=== PATIENT | male | born 1995 | race Two or more races ===

== ENCOUNTER 2024-08-10 13:05 | Emergency (ER) | payer MEDICAID, SELFPAY ==
[2024-08-10 13:17] VITALS: BP 135/56; PULSE 114; RESP 20; TEMP 36.9; O2SAT 96; BMI 26.4
--- NOTE | 2024-08-10 13:24 | XR_ITS ---
Examination: PA lateral chest 2 views TECHNIQUE: Upright PA lateral chest 2 views Exam date and time: August 10, 2024 1331 hours INDICATIONS: Coughing chest pain today FINDINGS: Normal heart size. The lungs are clear. The osseous structures are intact IMPRESSION: No active disease
--- NOTE | 2024-08-10 13:26 | PD.EDURI ---
Upper Respiratory Inf. RME/HPI General Chief Complaint: Flu Like Symptoms Stated Complaint: Cough X 1 week, penis infection Time Seen by Provider: 08/10/24 13:08 Source: patient Arrival date/time: 08/10/24 13:05 28-year-old male with no known medical history presents to the emergency room with a chief complaint of cough, congestion, intermittent fevers x 1 week. Patient states he is also has an infection to his penis. Mode of arrival: ambulatory Limitations: no limitations Related Data Previous Rx's ?Medication ?Instructions ?Recorded valacyclovir 1 gram tablet 1,000 mg PO BID 10 days #20 tabs 08/10/24 Allergies Allergy/AdvReac Type Severity Reaction Status Date / Time NKA* Allergy Uncoded 02/09/17 10:43 Review of Systems Review of Systems Systems Reviewed: All systems reviewed, normal except as documented Constitutional Constitutional: Reports system reviewed and no additional complaints, except as documented, Denies fatigue, Denies fever(s), Denies headache(s) and Denies weakness Eyes Eyes: Reports system reviewed and no additional complaints, except as documented, Denies blurry vision and Denies change in vision ENT Ears, Nose, Mouth, and Throat: Reports system reviewed and no additional complaints, except as documented, Denies otalgia, Denies headache(s), Denies nasal congestion, Denies throat swelling and Denies vertigo Cardiovascular Cardiovascular: Reports system reviewed and no additional complaints, except as documented, Denies chest pain, Denies dyspnea and Denies dyspnea on exertion Respiratory Respiratory: Reports chest congestion, Reports cough, Denies dyspnea, Denies dyspnea on exertion and Denies wheezing Gastrointestinal Gastrointestinal: Reports system reviewed and no additional complaints, except as documented, Denies abdominal pain, Denies cramping, Denies nausea and Denies vomiting Genitourinary Genitourinary: Reports system reviewed and no additional complaints, except as documented, Denies dysuria, Reports genital lesions, Reports genital pain and Denies hematuria Musculoskeletal Musculoskeletal: Reports system reviewed and no additional complaints, except as documented and Denies back pain Integumentary/Breasts Skin/Breast: Reports system reviewed and no additional complaints, except as documented and Denies wounds Neurologic Neurologic: Reports system reviewed and no additional complaints, except as documented, Denies confusion, Denies headache(s), Denies lack of coordination, Denies vertigo and Denies weakness Psychiatric Psychiatric: Reports system reviewed and no additional complaints, except as documented, Denies anxiety, Denies confusion, Denies depression, Denies paranoia, Denies suicidal ideation and Denies tactile hallucinations Endocrine Endocrine: Reports system reviewed and no additional complaints, except as documented and Denies fatigue Hematologic/Lymphatic Hematologic/Lymphatic: Reports system reviewed and no additional complaints, except as documented and Denies lymphadenopathy Allergic/Immunologic Allergic/Immunologic: Reports system reviewed and no additional complaints, except as documented, Denies throat swelling, Denies urticaria and Denies wheezing Past Medical History Social History SMOKING STATUS: Current every day smoker ED Exam General Limitations: Present no limitations General appearance: Present alert and in no apparent distress Head Head exam: Present atraumatic Eye Eye exam: Present normal appearance, PERRL and EOMI ENT ENT exam: Present normal exam, normal oropharynx and mucous membranes moist Neck Neck exam: Present normal inspection, full ROM and trachea midline Chest Chest inspection: Present normal inspection and symmetric chest wall rise Respiratory Respiratory exam: Present normal lung sounds bilaterally Cardiovascular Cardiovascular exam: Present regular rate, normal rhythm and normal heart sounds Abdominal Exam Abdominal exam: Present soft and normal bowel sounds Extremities Exam Extremities exam: Present normal inspection and full ROM Back Exam Back exam: Present normal inspection and full ROM Neurological Exam Neurological exam: Present alert, oriented X3 and CN II-XII intact Psychiatric Psychiatric exam: Present normal affect and normal mood Skin Skin exam: Present warm, dry, intact and normal color Course Quality Measures none Orders Category Date Time Status Bedside COVID-19 Antigen Test NOW Care 08/10/24 13:24 Active Bedside Influenza A&B Antigen Test NOW Care 08/10/24 13:24 Completed XR chest 2V Stat Exams 08/10/24 13:24 Completed Vital Signs Vital signs: Vital Signs Temperature 98.5 F 08/10/24 13:17 Pulse Rate 114 H 08/10/24 13:17 Respiratory Rate 20 08/10/24 13:17 Blood Pressure 135/56 H 08/10/24 13:17 Pulse Oximetry (%) 96 08/10/24 13:17 Oxygen Delivery Method Room Air 08/10/24 13:17 O2 saturation 96% within normal limits Upper Respiratory Infection MDM Narrative MDM Narrative:: 28-year-old male with no known medical history presents to the emergency room with a chief complaint of cough, congestion, intermittent fevers x 1 week. Patient states he is also has an infection to his penis. The patient is hemodynamically stable and in no apparent distress. Physical examination shows clear bilateral lung sounds with no wheezing or any abnormal breath sounds. COVID-19 influenza and chest x-ray were negative for any acute findings. Physical examination shows a rash consistent with genital herpes to the patient's penis. There is multiple pustules. Patient states he is not taking the antiviral medication for the last 9 days. Patient states the rash has gotten better but has not gone away yet. Another dose of medication was sent to the patient's pharmacy patient was discharged and educated to follow-up with his primary care provider and return to the emergency room for any evidence of worsening signs or symptoms Patient data External records reviewed:: [facility] previous records Clinical information provided by:: patient Social determinants that could affect healthcare access:: none Patient has the following chronic illnesses:: No chronic illness How is presenting disease/condition affected by chronic disease/condition?: no chronic disease Evaluation data The following diagnostics were reviewed and interpreted by me:: lab results and radiology exam(s) Lab and/or radiology exams considered but not ordered:: Labs and radiology exams considered and ordered Interpretation Summary: N/A Medications / Prescriptions Medications or Prescriptions considered but not ordered:: Medication given Medication administrations:: Rx given Consultations Consultation(s) initiated? (list below): No Diagnosis Upper Respiratory Differential Diagnosis: upper respiratory infection, sinusitis, viral infection, influenza and other (Genital herpes) Most likely diagnosis given after review of the tests above:: Genital herpes Admission Indicated Admission indicated?: not indicated Admission Request Was there a request for admission?: No Disposition Plan Disposition Plan: Discharge Discharge Attestation Discharge Attestation: The patient and all family members were given an opportunity to ask questions and understood the discharge instructions. Discharge instructions specifically effects, indications for sooner follow up or return to the emergency department, and the expected course of current diagnosis. Patient condition: Stable Discharge Plan Plan Patient Disposition: HOME (Self Care) Disposition Comment: Stable Prescriptions/Referrals Prescriptions/Med Rec: New valacyclovir 1 gram tablet 1,000 mg PO BID 10 Days Qty: 20 0RF Referrals: No Primary/Family,Physician [Primary Care Provider] - In 1 week Problem List Clinical Impression: Recurrent genital herpes simplex, Upper respiratory infection, viral Patient/Caregiver Discharge Instructions Education Materials: Herpes: Treatment with Medication, ED Herpes Genitalis, Hsv: Type Ii, ED URI, Viral, No Abx (Adult) Additional Instructions: Please follow-up with your primary care provider in the next 24 to 48 hours. Your chest x-ray, COVID-19 and influenza test were all negative. I looked up the recommended treatment for your genital herpes and another treatment of 10 days is recommended if healing is incomplete after 10 days of therapy. Antiviral medication was sent to your pharmacy please pick it up and take it as indicated For any evidence of worsening signs or symptoms please return to the emergency room immediately Print Language: Sami Stand Alone Forms: Rhonda Award Info., Patient Portal Info Letter PA/[employer] Supervising Physician PA/[employer] Supervising Physician: Dr. Trejo
== END 2024-08-10 16:19 | disposition home or self-care (01) ==
PROVIDERS: Emergency Provider Emergency Medicine
DX: A60.02 Herpesviral infection of other male genital organs (principal); J06.9 Acute upper respiratory infection, unspecified
CPT/HCPCS: 71046; 87400; 87811; 99283

== ENCOUNTER 2025-01-09 21:45 | Emergency (ER) | payer MEDICAID, SELFPAY ==
[2025-01-09 21:45] VITALS: BP 120/74; PULSE 85; RESP 20; TEMP 37; O2SAT 99
[2025-01-09 21:47] VITALS: BMI 27.7
--- NOTE | 2025-01-09 22:19 | XR_ITS ---
Examination: CT abdomen and pelvis without contrast. Coronal 3-D reconstructions. Sagittal 2-D reconstructions. Date and time of exam:January 09, 2025 1054 hours INDICATIONS: Left testicular swelling and pain beginning one hour ago CTDI: vol (mGy): 8.15 DLP: (mGycm): 496 Technique: Axial images of the abdomen have been obtained, 3 mm slice thickness Intravenous contrast material has not been administered. Low dose protocols were performed. One or more of the following dose reduction techniques were used; automated exposure control, adjustment of the mA and/or KV according to patient size, use of iterative reconstruction technique. Findings: No focal liver or splenic lesions Contracted gallbladder No pancreatic or adrenal mass Bilateral 1 to 3 mm renal calculi No hydronephrosis or ureteral calculi Normal appendix Urinary bladder is intact Left pelvic phlebolith IMPRESSION: Bilateral nonobstructing renal calculi, no hydronephrosis or ureteral calculi Normal appendix
--- NOTE | 2025-01-09 22:19 | XR_ITS ---
Examination: Testicular sonography complete TECHNIQUE: Beltran scale sonographic images testes, assessment arterial venous outflow Doppler spectral analysis color flow analysis Date and time: January 09, 2025 11:29 PM INDICATIONS: Left testicular pain and swelling beginning 2 days ago. FINDINGS: Right testis is 5.0 cm epididymis 14 mm Arterial flow to the testicle. No testicular mass Minimal hydrocele. Left testis 4.8 cm epididymis 1.1 cm Arterial flow the testicle. No testicular mass Small left varicocele Scattered right testicular microlithiasis IMPRESSION: No testicular torsion or testicular mass Mild left varicocele
--- NOTE | 2025-01-09 22:20 | PD.EDRME ---
Rapid Medical Screening Exam [facility] Arrival date/time: 01/09/25 21:45 29M with no significant PMH presents to ED with several days of L testicular/groin pain. Patient denies dysuria and penile discharge. Chief Complaint: Urogenital-Male
[2025-01-09] MEDS: NAPROXEN 250 MG TABLET 500 MG PO (22:29)
[2025-01-09 22:41] LABS: Collection Type, Urine Clean Catch; RBC,Urine 0 /hpf (0-3); WBC,Urine 0 /hpf (0-5)
[2025-01-09 22:56] LABS: Bilirubin,Urine Negative (Negative); Blood,Urine Negative (Negative); Clarity,Urine Turbid (Clear/Hazy); Color,Urine Lt-Yellow (Lt Yel-Yel); Culture Indicated,Urine Not Indicated; Glucose, Urine Negative (Negative); Ketones,Urine Negative (Negative); Leukocyte Esterase,Urine Negative (Negative); Nitrite,Urine Negative (Negative); PH,Urine 6.5 (5.0-7.0); Protein,Urine Negative (Neg - Trace); Specific Gravity,Urine 1.028 (1.001-1.035); Squamous Epithelial Cell,Urine < 1 /hpf (0-5); Urobilinogen,Urine Negative mg/dL (0.0-1.0)
[2025-01-10 00:12] VITALS: BP 114/70; PULSE 79; RESP 18; TEMP 36.9; O2SAT 99
[2025-01-10 00:46] LABS: Amphetamine/Methamp Scrn,U Positive (Negative); Barbiturate Screen,Urine Negative (Negative); Benzodiazepines Screen,Urine Negative (Negative); Benzoylecgonine Screen, Ur Negative (Negative); Fentanyl Screen,Urine Negative (Negative); Opiate Screen,Urine Negative (Negative); THC Screen,Urine Positive (Negative)
--- NOTE | 2025-01-10 02:10 | PRELIM_ITS ---
Ultrasound of the scrotum. January 09, 2025 at 2329 hours Clinical history: Left testicular pain/swelling. Comparison: No prior study is available for comparison. Technique: Real-time ultrasound was performed using Duplex scanning including arterial inflow, venous outflow, color and spectral Doppler analysis of both testes. Findings: Right Testis: Measures 5 x 3 x 3.2 cm Volume: 25.2 cm??. Echogenicity is normal with Doppler flow present An echogenic spot is seen throughout the parenchyma. Minimal hydrocele noted. Right epididymis measures 1.4 x 0.8 x 1 cm Scrotal wall thickness: 0.2 cm Left Testis:Measures 4.8 x 2.2 x 3.6 cm Volume: 19.8 cm??. Homogeneous echotexture with Doppler flow present Mild hydrocele is seen Varicocele noted lateral to the testis, measuring 0.2???0.3 cm with Valsalva Left epididymis measures 1.1 x 0.7 x 0.7 cm Scrotal wall thickness: 0.2 cm Impression: 1. No sonographic evidence of testicular torsion or epididymitis. 2. Right testicle: Echogenic spot; minimal hydrocele. 3. Left testicle: Mild hydrocele and small left-sided varicocele. Report Electronically Signed By: Tu Harden 01/10/2025 2:09:15 AM [EST]
[2025-01-10 03:17] VITALS: BP 103/67; PULSE 78; RESP 16; TEMP 36.4; O2SAT 97
--- NOTE | 2025-01-10 04:29 | EDNOTE_ITS ---
ED General RME/HPI General Chief complaint: Urogenital-Male Stated complaint: LEFT TESTICULAR SWELLING AND PAIN X1 HOUR Arrival date/time: 01/09/25 21:45 RME / HPI RME / HPI narrative: 01/09/25 21:45 29M with no significant PMH presents to ED with several days of L testicular/groin pain. Patient denies dysuria and penile discharge. Related Data Previous Rx's ?Medication ?Instructions ?Recorded doxycycline hyclate 200 mg 200 mg PO QDAY 7 days #7 ta bs 01/10/25 tablet,delayed release Allergies Allergy/AdvReac Type Severity Reaction Status Date / Time No Known Allergies Allergy Verified 01/09/25 21:46 Review of Systems Review of Systems Systems Reviewed: All systems reviewed, normal except as documented ED Exam Narrative Physical exam: Physical Exam GENERAL: NAD, AAOx3 HEENT: Moist mucosa. Eyes open, symmetrical, & clear CARDIO: Heart RRR, no obvious murmurs PULM: No noted coughing/dyspnea CTA B/L, no R/W/R GI: Abdomen soft, nondistended, no pain on palpation. BSx4 SKIN/MSK/EXT: No wounds/rashes/edema/amputations, no pain on palpation. Pedal pulses present B/L : left testicle swollen and tender to palpation compared to the right, no redness, no penile discharge. NEURO: AAOx3, no focal neuro deficits, able to move all 4 extremities Course Course Course Narrative: 2218 US of testicle shows left testicle with small hydrocele and varicocele 2233 UA no evidence of UTI 0444 Ceftriaxone 250mg IM x1 and toradol 30mg IM x1 ordered Patient can be safely discharged with doxycycline 200mg for 7 days Should any symptoms recur or worsen patient instructed to return to the ED. Quality Measures none Orders Category Date Time Status CT abdomen pelvis wo con Stat Exams 01/09/25 22:19 Completed US testicular Stat Exams 01/09/25 22:19 Taken Chlamydia/GC/TV - PCR Stat Lab 01/09/25 22:34 Received Drug Screen,Urine Stat Lab 01/09/25 22:34 Completed Urinalysis, C/S if Indicated Stat Lab 01/09/25 22:34 Completed Ketorolac Inj [Toradol Inj] Med 01/10/25 04:48 Discontinued 30 mg IM X1 ONE Naproxen [Naprosyn] Med 01/09/25 22:21 Discontinued 500 mg PO X1 ONE cefTRIAXone [Rocephin] Med 01/10/25 04:44 Discontinued 250 mg IM X1 ONE Vital Signs Vital signs: Vital Signs Temperature 98.6 F 01/09/25 21:45 Pulse Rate 85 01/09/25 21:45 Respiratory Rate 20 01/09/25 21:45 Blood Pressure 120/74 01/09/25 21:45 Pulse Oximetry (%) 99 01/09/25 21:45 Oxygen Delivery Method Room Air 01/09/25 21:45 Discharge Plan Plan Patient Disposition: HOME (Self Care) Prescriptions/Referrals Prescriptions/Med Rec: New doxycycline hyclate 200 mg tablet,delayed release (DR/EC) 200 mg PO QDAY 7 Days Qty: 7 0RF Referrals: No Primary/Family,Physician [Primary Care Provider] - In 1 week Problem List Clinical Impression: Orchitis, Epididymitis, STI (sexually transmitted infection) Patient/Caregiver Discharge Instructions Print Language: Palestinian Stand Alone Forms: Rhonda Award Info., Work/School Release, Patient Portal Info Letter MD Attestation MD Attestation I saw this patient with Dr. Bell the resident in the emergency department. I was present for the pertinent part of the history and physical. We discussed the management and care for this patient. I reviewed the note and agree. MDM Narrative MDM hospital course: 29 y/o M with no significant past medical history presented to the ED due left sided testicular pain. Patient states onset was around 2 days ago. States it came all of a sudden, with associated chills and fever. he noted that his left testicle was more swollen compared to the right one. He also endorsed that he does not have multiple sexual partners. Of note patient states he as a child had surgery on his testicles but does not recall which testicle actually had surgery. He denies any penile discharge, dysuria, changes in urinary habits. testicular US was done and showed small hydrocele and varicocele, UA negative for UTI, STD panel still pending Ceftriaxone 250mg IMx1 given and toradol 30mg IM x1 given OP doxycycline 200mg for 7 days prescribed. Patient is safe to go home. Should any symptoms recur or worsen patient is instructed to return to the ED. Clinical Information Provided by patient Medical Records Reviewed None Meds/Rx Considered, not Ordered None Labs/Rad/Tests considered, not Ordered None Chronic Illness/Social Conditions which may negatively complicate care or outcome(s)-explain: None or not applicable EKG EKG not done Medication Administration(s) Medication Administration History Discontinued Medications Ceftriaxone Sodium (Ceftriaxone Sodium 500 Mg Vial) 250 mg IM X1 ONE Stop: 01/10/25 04:45 Ketorolac Tromethamine (Ketorolac Inj 60 Mg/2 Ml Vial) 30 mg IM X1 ONE Stop: 01/10/25 04:49 Naproxen (Naproxen 250 Mg Tablet) 500 mg PO X1 ONE Stop: 01/09/25 22:22 Last Admin: 01/09/25 22:29 Dose: 500 mg Documented By: JD Diagnosis Differential diagnosis: Orchitis, Epidimytis, STD infection Most likely dx, and/or detailed dx discussion: STD Dispositon Disposition: Discharge Home
[2025-01-10 06:15] VITALS: BP 124/80; PULSE 75; RESP 18; TEMP 36.6; O2SAT 98
[2025-01-10] MEDS: KETOROLAC INJ 60 MG/2 ML VIAL 30 MG IM (06:15)
[2025-01-10] MEDS: cefTRIAXone 500 MG, LIDOCAINE 1% 20 ML 1 ML IM (06:16)
== END 2025-01-10 06:23 | disposition home or self-care (01) ==
PROVIDERS: Physician Assistant; Emergency Provider Emergency Medicine
DX: N45.3 Epididymo-orchitis (principal); A64 Unspecified sexually transmitted disease; I86.1 Scrotal varices
CPT/HCPCS: 74176; 76870; 80307; 81001; 87491; 87591; 87661; 96372; 99284; J0696; J1885; J3490; A9270

== ENCOUNTER 2025-01-29 10:52 | Emergency (ER) | payer MEDICAID, SELFPAY ==
[2025-01-29 11:09] VITALS: BP 118/71; PULSE 91; RESP 16; TEMP 36.6; O2SAT 99; BMI 27.0
--- NOTE | 2025-01-29 11:19 | XR_ITS ---
Examination: Testicular sonography complete Date and time: January 29, 2025 1139 hours INDICATIONS: Left testicular pain beginning January 09, 2025 Technique an findings: Grayscale sonographic images testes, assessment arterial inflow venous outflow Doppler spectral analysis carful analysis Right testis 5.3 cm epididymis 12 mm 3 mm epididymal cyst Moderate varicocele Arterial flow testicle. No testicular mass Left testis 5.4 cm epididymis 14 mm Arterial flow testicle. No testicular mass. Moderate varicocele Minimal hydrocele Bilateral testicular microlithiasis IMPRESSION: No testicular torsion or testicular mass Bilateral varicoceles Bilateral testicular microlithiasis
--- NOTE | 2025-01-29 13:21 | EDNOTE_ITS ---
ED Male Genitalurinary RME/HPI General Chief complaint: Urogenital-Male Stated complaint: Left testicle pain today Time Seen by Provider: 01/29/25 11:00 Arrival date/time: 01/29/25 10:52 29-year-old male presents Emergency Department today for complaint of left-sided testicular pain patient presented with similar symptoms approximately 3 weeks ago Limitations: no limitations Related Data Previous Rx's ?Medication ?Instructions ?Recorded ibuprofen 800 mg tablet 800 mg PO TID PRN pain #30 t abs 01/29/25 Allergies Allergy/AdvReac Type Severity Reaction Status Date / Time quetiapine (From Seroquel) Allergy Verified 01/29/25 10:57 Review of Systems Review of Systems Systems Reviewed: All systems reviewed, normal except as documented Constitutional Constitutional: Reports system reviewed and no additional complaints, except as documented, Denies fever(s) and Denies headache(s) Eyes Eyes: Reports system reviewed and no additional complaints, except as documented and Denies blurry vision ENT Ears, Nose, Mouth, and Throat: Reports system reviewed and no additional complaints, except as documented, Denies headache(s), Denies nasal congestion and Denies nasal discharge Cardiovascular Cardiovascular: Reports system reviewed and no additional complaints, except as documented, Denies chest pain and Denies dyspnea Respiratory Respiratory: Reports system reviewed and no additional complaints, except as documented, Denies chest congestion, Denies cough and Denies dyspnea Gastrointestinal Gastrointestinal: Reports system reviewed and no additional complaints, except as documented and Denies abdominal pain Genitourinary Genitourinary: Reports system reviewed and no additional complaints, except as documented, Denies dysuria and Reports other (Testicular pain) Integumentary/Breasts Skin/Breast: Reports system reviewed and no additional complaints, except as documented and Denies rash Neurologic Neurologic: Reports system reviewed and no additional complaints, except as documented, Reports as per HPI and Denies headache(s) Past Medical History Social History SMOKING STATUS: Current every day smoker ED Exam General Limitations: Present no limitations General appearance: Present alert and in no apparent distress Head Head exam: Present atraumatic Eye Eye exam: Present normal appearance, PERRL and EOMI ENT ENT exam: Present normal exam, normal oropharynx and mucous membranes moist Neck Neck exam: Present normal inspection, full ROM and trachea midline Chest Chest inspection: Present normal inspection and symmetric chest wall rise Respiratory Respiratory exam: Present normal lung sounds bilaterally Cardiovascular Cardiovascular exam: Present regular rate, normal rhythm and normal heart sounds Abdominal Exam Abdominal exam: Present soft and normal bowel sounds Extremities Exam Extremities exam: Present normal inspection and full ROM Back Exam Back exam: Present normal inspection and full ROM Neurological Exam Neurological exam: Present alert, oriented X3 and CN II-XII intact Psychiatric Psychiatric exam: Present normal affect and normal mood Skin Skin exam: Present warm, dry, intact and normal color Course Quality Measures none Orders Category Date Time Status US testicular Stat Exams 01/29/25 11:19 Completed Chlamydia/GC/TV - PCR Stat Lab 01/29/25 11:30 Received Vital Signs Vital signs: Vital Signs Temperature 97.8 F 01/29/25 11:09 Pulse Rate 91 01/29/25 11:09 Respiratory Rate 16 01/29/25 11:09 Blood Pressure 118/71 01/29/25 11:09 Pulse Oximetry (%) 99 01/29/25 11:09 Oxygen Delivery Method Room Air 01/29/25 11:09 O2 saturation 99% room air within normal limits Urogenital - Male MDM Narrative MDM Narrative:: 29-year-old male presents Emergency Department today for complaint of left-sided testicular pain patient presented with similar symptoms approximately 3 weeks ago On exam patient well-appearing patient does not appear ill or toxic no acute distress Imaging obtained no acute emergent findings noted GC chlamydia sent and is pending Patient reports no penile discharge Patient discharged home in no distress to follow-up with primary care doctor in the next 24 to 48 hours and for any worsening symptoms to return to the ER immediately Patient data External records reviewed:: [facility] previous records Clinical information provided by:: patient Social determinants that could affect healthcare access:: none Patient has the following chronic illnesses:: Number How is presenting disease/condition affected by chronic disease/condition?: no chronic disease Evaluation data The following diagnostics were reviewed and interpreted by me:: lab results and radiology exam(s) Lab and/or radiology exams considered but not ordered:: Labs radiology obtain Interpretation Summary: Reviewed by me Medications / Prescriptions Medications or Prescriptions considered but not ordered:: Given Medication administrations:: Given Consultations Consultation(s) initiated? (list below): No Diagnosis Urogenital Male Differential Diagnosis: urinary tract infection and inguinal hernia Most likely diagnosis given after review of the tests above:: Testicular pain Admission Indicated Admission indicated?: not indicated Admission Request Was there a request for admission?: No Disposition Plan Disposition Plan: Discharge Discharge Attestation Discharge Attestation: The patient and all family members were given an opportunity to ask questions and understood the discharge instructions. Discharge instructions specifically effects, indications for sooner follow up or return to the emergency department, and the expected course of current diagnosis. Patient condition: Stable Discharge Plan Plan Patient Disposition: HOME (Self Care) Discharge Disposition comment: Stable Prescriptions/Referrals Prescriptions/Med Rec: New ibuprofen 800 mg tablet 800 mg PO TID PRN (Reason: pain) Qty: 30 0RF Referrals: No Primary/Family,Physician [Primary Care Provider] - In 1 week Problem List Clinical Impression: Left testicular pain Patient/Caregiver Discharge Instructions Education Materials: ED Testicular Pain, Unclear Cause Additional Instructions: Please follow up with your primary care doctor in the next 24-48hrs for any worsening symptoms return here immediately Your STD panel is pending please follow-up on results Print Language: Honduran Stand Alone Forms: Rhonda Award Info., Patient Portal Info Letter KOBE/DARBY Supervising Physician KOBE/DARBY Supervising Physician: Dr [email or web address]
[2025-01-29 18:18] LABS: Chlamydia trachomatis PCR Negative (Not Detect); Neisseria Gonorrhoeae DNA PCR Negative (Not Detect); Trichomonas Negative (Negative)
== END 2025-01-29 14:41 | disposition home or self-care (01) ==
PROVIDERS: Emergency Provider Nurse Practitioner Primary Care
DX: N50.812 Left testicular pain (principal); I86.1 Scrotal varices; N50.89 Other specified disorders of the male genital organs
CPT/HCPCS: 76870; 87491; 87591; 87661; 99283